=== PATIENT | female | born 1990 | race African-American/Black ===

== ENCOUNTER 2020-03-18 08:18 | Emergency (ER) | payer SELFPAY ==
[~2020-03-18] VITALS: Ht 162.6 cm; Wt 68.0 kg
[2020-03-18 08:22] VITALS: BP 105/72
--- NOTE | 2020-03-18 08:29 | NUR ---
AMBULATED TO BED 2
--- NOTE | 2020-03-18 09:00 | NUR ---
29 YEAR OLD FEMALE COMPLAINS OF COUGH X 4 DAYS. PRODUCTIVE, GREEN COLOR. DENIES SOB. LUNGS CLEAR BILATERAL. RR18, SPO2 100% RA. AOX4. BREATHING EVEN AND UNLABORED. SKIN WARM AND DRY. BED IN LOWEST POSITION, LOCKED, SIDERAIL UP X1. PMH - BRONCHITIS NKA
--- NOTE | 2020-03-18 10:47 | NUR ---
PATIENT NOT FOUND IN ROOM. CHARGE NURSE SAYS PATIENT LEFT 20 MINUTES AGO. ERMD AWARE. PATIENT LEFT WITHOUT D/C INSTRUCTIONS
[2020-03-18 10:48] VITALS: BP 105/72
== END 2020-03-18 10:14 | disposition home or self-care (01) ==
LOC: MED 08:18
DX: R05 Cough (principal); N39.0 Urinary tract infection, site not specified
CPT/HCPCS: 71045; 81002; 81025; 99283